=== PATIENT | female | born 1960 | race Caucasian/White ===

== ENCOUNTER 2018-01-28 05:38 | Emergency (ER) | payer BC, OTHER ==
[2018-01-28] MEDS ORDERED: SODIUM CHLORIDE 0.9% 1000ML 1,000 ML IVS ONE (05:46)
[2018-01-28] MEDS ORDERED: SODIUM CHLORIDE 0.9% (FLUSH) 10 ML SYG IV PRN (05:46)
[2018-01-28] MEDS ORDERED: SODIUM CHLORIDE 0.9% 1000ML 1,000 ML ONE (05:48)
[2018-01-28] MEDS ORDERED: MORPHINE SULFATE INJ 10 MG/ML VIAL IV ONE ×3 (06:04→08:33)
[2018-01-28] MEDS ORDERED: MORPHINE SULFATE INJ 10 MG/ML VIAL ONE (06:05)
--- NOTE | 2018-01-28 06:05 | ED.PDOC ---
History of Present Illness - General Chief Complaint: Abdominal Pain Stated Complaint: RLQ pain, n/v Time Seen by Provider: 01/28/18 05:56 Information Source: patient, family Exam Limitations: no limitations - History of Present Illness Initial Comments: patient has sudden pain in her right lower quadrant abdominal pain, nausea, vomiting, fever and chills since 2 AM. She's had a little bit of discomfort in that area off and on for the last week but never to this extent. Patient has no medical problems and does not take medication [id number]. She's had a tonsillectomy in the past and breast augmentation but no other surgeries. She does not smoke, drink, or take illicit substances. Abdominal Pain Onset Location: RUQ Quality: severe, sharpness, stabbing Timing/Duration: 1-3 hours Improving Factors: nothing Worsening Factors: nothing Associated Symptoms: fever/chills, nausea/vomiting Past Medical History (General) - Patient Medical History Hx Asthma: No Hx Congestive Heart Failure: No Hx Pacemaker: No Hx Hypertension: No Hx Diabetes: No Hx Gastroesophageal Reflux: No Surgical History: tonsillectomy - Vaccination History Hx Tetanus, Diphtheria Vaccination: No Hx Influenza Vaccination: No Hx Pneumococcal Vaccination: No - Social History Hx Tobacco Use: No Hx Alcohol Use: No Family Medical History - Family History Mother Hx Family Stroke: Yes Physical Exam - Physical Exam General Appearance: Obvious distress, Ill Appearing Eyes, Ears, Nose, Throat Exam: PERRL/EOMI, normal ENT inspection, TMs normal, pharynx normal Neck: non-tender, full range of motion, supple, normal inspection Respiratory: chest non-tender, lungs clear, normal breath sounds, no respiratory distress, no accessory muscle use Cardiovascular/Chest: normal peripheral pulses, regular rate, rhythm, no edema, no gallop, no JVD, no murmur Peripheral Pulses: No deficit Gastrointestinal/Abdominal: soft, distended, other - hypoactive BS with TTP and guarding to the RLQ with positive heel tap Progress - Progress Progress: 01/28/18 06:06 01/28/18 05:46 Sodium Chloride 0.9% (Flush) [Saline Flush Syringe] 10 ml IV PRN PRN Sodium Chloride 0.9% 1000ML [Ns 1000 ml] 1,000 ml IVS ONCE 01/28/18 05:47 IV Care:Saline Lock per Protoc QSHIFT URINALYSIS Stat 01/28/18 05:50 AMYLASE Stat BASIC METABOLIC PANEL Stat LIPASE Stat 01/28/18 06:00 Abdoment/Pelvis w/o Contrast [CT] Stat Laboratory Results WBC 6.6 K/mm3 (4.8-10.8) 01/28/18 05:50 RBC 4.48 M/mm3 (4.20-5.40) 01/28/18 05:50 Hgb 13.5 gm/dL (12.0-16.0) 01/28/18 05:50 Hct 39.6 % (36.0-47.0) 01/28/18 05:50 MCV 88.3 fl (81.0-99.0) 01/28/18 05:50 MCH 30.1 pg (27.0-31.0) 01/28/18 05:50 MCHC 34.1 g/dL (33.0-37.0) 01/28/18 05:50 RDW 13.6 % (11.5-14.5) 01/28/18 05:50 Plt Count 187 K/mm3 (130-400) 01/28/18 05:50 MPV 8.6 fl (7.40-10.4) 01/28/18 05:50 Absolute Neuts (auto) 4.30 K/uL (1.8-6.8) 01/28/18 05:50 Absolute Lymphs (auto) 1.70 K/uL (1.0-3.4) 01/28/18 05:50 Absolute Monos (auto) 0.40 K/uL (0.2-0.8) 01/28/18 05:50 Absolute Eos (auto) 0.10 K/uL (0.0-0.4) 01/28/18 05:50 Absolute Basos (auto) 0.00 K/uL (0.0-0.1) 01/28/18 05:50 Neutrophils % 65.1 % (42.0-78.0) 01/28/18 05:50 Lymphocytes % 25.7 % (20.0-50.0) 01/28/18 05:50 Monocytes % 6.6 % (2.0-9.0) 01/28/18 05:50 Eosinophils % 2.0 % (1.0-5.0) 01/28/18 05:50 Basophils % 0.6 % (0.0-2.0) 01/28/18 05:50 Departure - Departure Clinical Impression: Appendicitis Qualifiers: Appendicitis type: acute appendicitis Acute appendicitis type: with localized peritonitis Qualified Code(s): K35.3 - Acute appendicitis with localized peritonitis Disposition: Transfer to Hospital Condition: Poor Departure Forms: ED Discharge - Pt. Copy, Patient Portal Self Enrollment Referrals: Andre Mirza MD [Primary Care Provider] - 1-2 Weeks
[2018-01-28] MEDS ORDERED: ONDANSETRON INJ 4 MG/2 ML VIAL ONE (06:07)
[2018-01-28] MEDS ORDERED: fentaNYL CITRATE INJ 50 MCG/ML AMP IV ONE (06:11)
[2018-01-28] MEDS ORDERED: fentaNYL CITRATE INJ 50 MCG/ML AMP ONE (06:11)
[2018-01-28] MEDS ORDERED: PIPERACILLIN/TAZOBACTAM 3.375 GM in SODIUM CHLORIDE 0.9% 100ML 100 ML IVPB ONE (06:13)
[2018-01-28] MEDS ORDERED: PIPERACILLIN/TAZOBACTAM 3.375 GM VIAL IVPB ONE ×2 (06:14→07:29)
[2018-01-28] MEDS ORDERED: SODIUM CHLORIDE 0.9% 100ML 0 ML IVPB ONE (06:15)
[2018-01-28] MEDS ORDERED: ONDANSETRON INJ 4 MG/2 ML VIAL IV ONE ×2 (06:26→07:35)
[2018-01-28 06:58] VITALS: TEMP 98.1
--- NOTE | 2018-01-28 07:00 | CT ---
EXAM: CT abdomen and pelvis without contrast. INDICATION: Abdominal pain, acute. TECHNIQUE: Contiguous axial CT images of the abdomen and pelvis. Intravenous contrast: Absent. Oral contrast: Absent. DLP 367 mGy-cm. This exam was performed according to our departmental dose-optimization program, which includes automated exposure control, adjustment of the mA and/or kV according to patient size and/or use of iterative reconstruction technique. COMPARISON: None. FINDINGS: Lower chest: Partially imaged. Lung bases: Unremarkable. Cardiac apex: Unremarkable. Solid abdominal viscera: Limited by lack of intravenous contrast. Liver: Unremarkable. Gallbladder: Unremarkable. Pancreas: Unremarkable. Spleen: Unremarkable. Adrenal glands: Unremarkable. Right kidney: No urolithiasis or hydronephrosis. Left kidney: No urolithiasis or hydronephrosis. Urinary bladder: Unremarkable. Abdominal aorta: Unremarkable. Peritoneal: Free fluid: None. Free air: None. Other: No pathologic sized lymph nodes in the upper abdomen. Bowel: Stomach: Unremarkable. Small bowel: Unremarkable. Appendix: Unremarkable. Colon: Unremarkable. Rectum: Unremarkable. Uterus: There is a 9.1 x 8.4 cm right adnexal cystic mass Bones: Unremarkable. IMPRESSION: 9.1 x 8.4 right adnexal cystic mass. Further evaluation with an MRI with contrast and/or surgical evaluation is recommended. Normal appendix. No evidence of nephrolithiasis or hydronephrosis Electronically signed by: Rajinder Gomez MD 01/28/2018 6:59 AM CDT Workstation: [id number]
[2018-01-28] MEDS ORDERED: SODIUM CHLORIDE 0.9% 100ML 100 ML IVPB ONE (07:29)
[2018-01-28 08:01] VITALS: O2SAT 99
[2018-01-28 08:44] VITALS: BP 99/61
== END 2018-01-28 08:35 | disposition short-term general hospital (02) ==
LOC: ER 05:38
DX: K35.3 Acute appendicitis with localized peritonitis (principal)
CPT/HCPCS: 36415; 74176; 80048; 81001; 82150; 83690; 85025; J2270; J2405; J2543; J3010; J7030; J7050

== ENCOUNTER → 2019-03-01 | Outpatient (CLI) | payer OTHER ==
--- NOTE | 2019-03-05 15:49 | MAM ---
EXAM DESCRIPTION: 3D Screening BILATERAL : Digital Mammography. CLINICAL HISTORY: 58 years Female Annual screening . No complaints and no personal or family history of breast cancer. Childbirth. Postmenopausal to plus years. No HRT bilateral breast augmentation.. Lifetime risk of developing breast cancer (Tyrer-Cuzick model)(%): 6.3. COMPARISON: 2-D digital screening bilateral mammography prior to augmentation. 03/11/2014. TECHNIQUE: Bilateral CC and MLO projection full-field images, with [employer] Implant Displacement digital tomosynthesis mammographic technique. Bilateral 2-D digital full-field images, MLO and CC projections, non-displaced. Bilateral digital 2-D full-field MLO images. Implant displaced. CAD not available for tomosynthesis or 2-D images. FINDINGS: The breast parenchymal density pattern is: Heterogeneously dense breast tissue, which may obscure small masses. No skin thickening or nipple retraction. Bilateral saline retro-muscular implants. Capsule appears intact where seen. Microcalcifications behind the right nipple seen on the prior study are not well seen on this study. No new focal, stellate mass or density, focal asymmetry , and no suspicious microcalcifications bilaterally. Stable mammograms compared to prior study. Taking into account, differences in mammographic technique. IMPRESSION: Benign exam. BIRAD CATEGORY: 2 BENIGN FINDINGS. RECOMMENDATIONS: FOLLOW UP: Routine digital bilateral mammographic screening, one year interval from February 2019. Written communication explaining the IMPRESSION and follow-up, will be mailed to the patient and referring health care provider. According to the [employer], yearly mammograms are recommended starting at age 40 and continuing as long as a woman is in good health. Any breast change noted on a breast self-exam should be reported promptly to the patient's healthcare provider. Breast MRI is recommended for women with an approximately 20-25% or greater lifetime risk of breast cancer, including women with a strong family history of breast or ovarian cancer and women who have been treated for Hodgkin's disease. A negative mammographic report should not delay tissue diagnosis in patients with significant clinical history or physical findings. Extremely dense breast tissue limits the sensitivity of digital mammography. Electronically signed by: Reggie Dobson MD 03/05/2019 3:48 PM CDT
== END ==
LOC: MAMMO 11:30
PROVIDERS: ATTEND Family Medicine
DX: Z12.31 Encounter for screening mammogram for malignant neoplasm of breast (principal)